=== PATIENT | male | born 1975 | race Caucasian/White ===

== ENCOUNTER 2025-01-30 12:54 | Emergency (ER) | payer OTHER, SELFPAY ==
--- OUTSIDE RECORDS SUMMARY | 2025-01-30 12:57 | XMS_ITS | Data Portability ---
Author Organization [place] - [facility], autoContract - [facility] Address [address] [place] [address] Assessment Encounter Date Assessment Date Assessment LastModified by Organization Details LastModified Time 09/19/2024 09/19/2024 ASSESSMENT: Patient is a good candidate for conservative care and the prognosis is for a favorable outcome that achieves the patients' goals. We discussed etiology, activity modifications, home care, and other treatment options. Initially, it is recommended that the patient receive in-office treatment 1 times per week for 8 weeks at which time a re-evaluation will be performed to determine an appropriate change in plan. Initially, treatment will focus on joint manipulation to restore range of motion and reduce pain. We will slowly progress to therapeutic exercises and activities to improve function, strength, and stability may also be used as warranted. If the patient is not responding as expected, more invasive procedures will be discussed along with a referral. All considerations above were discussed with the patient and questions answered to satisfaction. If the patient should have any additional questions, or should the condition evolve or worsen, the patient should not hesitate to contact our office. ASSESSMENT: Patient is a good candidate for conservative care and the prognosis is for a favorable outcome that achieves the patients' goals. We discussed etiology, activity modifications, home care, and other treatment options. Initially, it is recommended that the patient receive in-office treatment 1 times per week for 8 weeks at which time a re-evaluation will be performed to determine an appropriate change in plan. Initially, treatment will focus on joint manipulation to restore range of motion and reduce pain. We will slowly progress to therapeutic exercises and activities to improve function, strength, and stability may also be used as warranted. If the patient is not responding as expected, more invasive procedures will be discussed along with a referral. All considerations above were discussed with the patient and questions answered to satisfaction. If the patient should have any additional questions, or should the condition evolve or worsen, the patient should not hesitate to contact our office. [email or web address] Not available 09/19/2024 16:30:18 01/14/2025 01/14/2025 ASSESSMENT: Patient is a good candidate for conservative care and the prognosis is for a favorable outcome that achieves the patients' goals. We discussed etiology, activity modifications, home care, and other treatment options. Initially, it is recommended that the patient receive in-office treatment 1 times per week for 8 weeks at which time a re-evaluation will be performed to determine an appropriate change in plan. Initially, treatment will focus on joint manipulation to restore range of motion and reduce pain. We will slowly progress to therapeutic exercises and activities to improve function, strength, and stability may also be used as warranted. If the patient is not responding as expected, more invasive procedures will be discussed along with a referral. All considerations above were discussed with the patient and questions answered to satisfaction. If the patient should have any additional questions, or should the condition evolve or worsen, the patient should not hesitate to contact our office. [email or web address] Not available 01/18/2025 15:46:55 Plan of Treatment Reminders Order Date Submit Date Provider Last Modified By Organization Details Last Modified Time Details Appointments None record ed. Lab None record ed. Referral None record ed. Procedures None record ed. Surgeries None record ed. Imaging None record ed. Medication Orders None record ed. Patient TargetsNo targets recorded. Patient InstructionsNo instructions recorded. Reason for Referral None Reported. Problems Name Problem SNOMED Code Status Onset Date Resolution Date Notes Provider Name and Address Organization Details Recorded Time Neck pain 86833428 Active 2024 Akhil Gill DC [address], [place], [address], [facility] 16:30:13 Cervical segmental dysfunction 247659444 Active 2024 Akhil Gill DC [address], [place], [address], [facility] 16:30:13 Thoracic segmental dysfunction 671104139 Active 2024 Akhil Gill DC [address], [place], [address], [facility] 16:30:13 Lumbar segmental dysfunction 342706502 Active 2024 Akhil Gill MA [address], [place], [address], [facility] 16:30:13 Low back pain 967923607 Active 2024 Akhil Gill MA [address], [place], [place], [address], [facility] 16:30:19 Somatic dysfunction of sacral spine 101862293 Active 2024 Akhil Gill MA [address], [place], [address], [facility] 16:30:19 Lesion of lumbar spine 541527166 Active 2024 Adriano [place], [place] [address], [facility] [place], [address], [facility] 15:46:56 Problem Notes None recorded. Procedures Surgical History Date Name Laterality Status Provider Name and Address Organization Details Recorded Time 79713: Spinal manipulation , 3 to 4 regions completed Adriano Brown MA [address], [place], [address], [facility] 01/18/2025 15:47:00 88060: Spinal manipulation , 3 to 4 regions completed Akhil Gill MA [address], [place], [address], [facility] 09/19/2024 16:34:54 Imaging Results None recorded. Procedure Notes None recorded. Medical Equipment None Reported. Medications Name Sig Start Date Stop Date Status Note LastModified by Organization Details LastModified Time sildenafil 50 mg tablet TAKE ONE TABLET BY MOUTH DAILY NEEDED FOR ERECTILE DYSFUNCTIO N. TAKE 30MIN - 4HRS PRIOR TO SEXUAL ACTIVITY active Not Available Not Available No t Available amlodipine 5 mg tablet TAKE ONE TABLET BY MOUTH ONE TIME DAILY* active Not Available Not Available No t Available Vitals None Recorded Social History None recorded. Functional Status None recorded. Mental Status None recorded. Family History Nothing Reported. Medical History No medical history recorded. Past Encounters Encounter ID Performer Location Encounter Start Date Encounter Closed Date Diagnosis/Indication Diagnosis SNOMED-CT Code Diagnosis ICD10 Code Diagnosis Note [id number] Akhil Zane Gill DC [facility] [address] [place] [address] 09/19/2024 16:06:46 09/19/2024 16:53:13 Cervical segmental dysfunction 968368157 M99.01 Neck pain 69422540 M54.2 Thoracic s egmental dysfunction 859618309 M99.02 Lumbar seg mental dysfunction 605144589 M99.03 Low back pain 227267370 M54.50 Somatic dy sfunction of sacral spine 629804396 M99.04 [id number] Adriano Brown DC [facility] [address] [place] [address] 01/15/2025 10:44:55 01/21/2025 16:34:17 Lesion of lumbar spine 463433992 M99.01 Neck pain 09883150 M54.2 Thoracic s egmental dysfunction 959521705 M99.02 Lumbar seg mental dysfunction 295723080 M99.03 Cervical s egmental dysfunction 917722544 M99.01 Health Concerns Section Related Observation LastModified by Organization Detai ls LastModified Time None Recorded Concern Status LastModified by Organization Details LastModified Time None Recorded Advance Directives Directive None Recorded Payers Insurance Date Sequence Insurance Name Policy Number Policy Harris Covered Member ID Harris Member ID Guarantor Name 09/22/2024 1 [facility] Eamon Rivero [id number] Eamon Rivero 01/21/2025 1 [facility] [facility] [id number] Eamon Rivero [id number] Eamon Rivero Notes Date Note Type Note Provider Name and Address Organization Details Recorded Time 09/19/2024 text/html HPI - Cervical SpineReported bypatient.Location: right Quality:aching Severity:moderate Duration:2 weeks Timing:gradual Alleviating Factors:ice Aggravating Factors:sitting Associated Symptoms:no numbness/tinglingHP I - Lumbar SpineReported bypatient.Location: bilateral; With radiation to knee Quality:aching Severity:not changing Timing:morning Aggravating Factors:standing Alleviating Factors:ice Akhil Gill DC [address], [place], [address], [facility] 09/19/2024 16:35:07 01/14/2025 text/html HPI - Cervical SpineReported bypatient.Location: left Quality:aching Severity:moderate Duration:2 weeks Timing:gradual Alleviating Factors:ice Aggravating Factors:sitting Associated Symptoms:no numbness/tingling Adriano Brown DC [address], [place], [address], [facility] 01/18/2025 15:47:09
--- OUTSIDE RECORDS SUMMARY | 2025-01-30 12:57 | XMS_ITS | Continuity of Care Document ---
Author Organization [facility] Address [address] [place] [address] Assessment Encounter Date Assessment Date Assessment LastModified by Organization Details LastModified Time 01/14/2025 01/14/2025 ASSESSMENT: Patient is a good [...] Address Organization Details Recorded Time Neck pain 93841768 Active 2024 Akhil Gill DC [address], [place], [address], [facility] [place] - [facility] 16:30:13 Cervical segmental dysfunction 902948164 Active 2024 Akhil Degroot Heatherchris SATISH [address], [place], [address], [facility] [place] - [facility] 16:30:13 Thoracic segmental dysfunction 754164923 Active 2024 Akhil Zane RomerochrisSATISH [address], [place], [address], [facility] 16:30:13 Lumbar segmental dysfunction 082863863 Active 2024 Akhil Zane RomerochrisSATISH [address], [place], [address], [facility] 16:30:13 Low back pain 325243051 Active 2024 Akhil Zane Gill DC [address], [place], [address], [facility] 16:30:19 Somatic dysfunction of sacral spine 858735813 Active 2024 Akhil Zane Gill DC [address], [place], [address], [facility] 16:30:19 Lesion of lumbar spine 744295731 Active 2024 Adriano Robleszhane Brown DC [address], [place], [address], [facility] 15:46:56 Problem Notes None recorded. Procedures Surgical History Date Name Laterality Status Provider Name and Address Organization Details Recorded Time 00170: Spinal manipulation , 3 to 4 regions completed Adriano Quintonzhane Brown DC [address], [place], [address], [facility] 01/18/2025 15:47:00 [address]: Spinal manipulation , 3 to 4 regions completed Akhil Gill DC [address], [place], [address], [facility] 09/19/2024 16:34:54 Imaging Results None recorded. Procedure [...] History No medical history recorded. Past Encounters None Reported. Health Concerns Section Related Observation LastModified by Organization Detai ls LastModified Time None Recorded Concern Status LastModified by Organization Details LastModified Time None Recorded Payers Encounter Date Sequence Insurance Name Policy Number Policy Harris Covered Member ID Harris Member ID Guarantor Name 01/14/2025 1 [facility] [id number] Eamon Rivero [id number] Eamon Rivero Notes Date Note Type Note Provider Name and Address Organization Details Recorded Time 01/14/2025 text/html HPI - Cervical SpineReported bypatient.Location: left Quality:aching Severity:moderate Duration:2 weeks Timing:gradual Alleviating Factors:ice Aggravating Factors:sitting Associated Symptoms:no numbness/tingling Scot Quinton Brown DC [address], [place], [address], [facility] 01/18/2025 15:47:09
--- OUTSIDE RECORDS SUMMARY | 2025-01-30 12:57 | XMS_ITS | Clinical Summary ---
Author Organization [employer] Address [address] [place] [address] Care Team Providers Care Family Services Coordinator Name Role Phone Amanda Lord Primary Care Provider [phone] Allergies Active Allergy Reactions Criticality Noted Date Comments Shellfish Derived Hives,Throat Swelling/Closing High 01/23/2017 Medications EPINEPHrine (EpiPen) 0.3 mg/0.3 mL auto-injectorI ndications:She llfish allergy Inject 0.3 mg intramuscular one time if needed for Allergic Reaction. 2 Each 3 Active amLODIPine (NORVASC) 5 mg tabletIndicati ons:HTN (hypertension) Take 1 Tablet (5 mg) by mouth once daily. 90 Tablet 3 4 Active sildenafil citrate (VIAGRA) 50 mg tabletIndicati ons:ED (erectile dysfunction) of organic origin Take 1 Tablet (50 mg) by mouth once daily if needed for Erectile Dysfunction. Take 30 minutes to 4 hours before sexual activity. Max 100mg/24hr. 30 Tablet 11 4 Active LORazepam 1 mg tabletIndicati ons:Anxiety with flying Take 1 Tablet (1 mg) by mouth every 4 hours if needed for Anxiety. 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 (05/31/2016): Fear of flying Immunizations Immunization Administration Dates Next Due Influenza, IIV4 05/31/2016 Td (Age >=7 Years) 12/15/2021,09/13/2004 Tdap 09/20/2011 Family History Medical History Relation Name Comments Aneurysm Father Aorta, caused L E DVT Diabetes type II Father Hypertension Father Heart Disease Maternal Grandfather Cancer-breast Mother Heart Disease Mother Atrial fib Hyperlipidemia Mother Heart Disease Paternal Grandfather Heart failure Sister Relation Name Status Comments Father Alive Maternal Grandfather Mother Alive Paternal Grandfather Sister Alive Social History Tobacco Use Types Packs/Day Years Used Date Smoking Tobacco: Never Smokeless Tobacco: Never Tobacco Cessation:Counseling Given: Not Answered Alcohol Use Standard Drinks/Week Comments Not Currently 0 (1 standard drink = 0.6 oz pur e alcohol) occasional PHQ-2 Answer Date Recorded PHQ-2 TOTAL SCORE 0 06/06/2024 Social Connections Answer Date Recorded Do you often feel lonely or isolated from those around you? 0 06/01/2024 Financial Resource Strain Answer Date R ecorded Difficulty of Paying Living Expenses 3 06/06/2024 Difficulty of Paying Living Expenses Not on file 06/06/2024 Food Insecurity Answer Date Recorded Do you worry your food will run out before you are able to buy more? 1 06/01/2024 Transportation Needs Answer Date Record ed Does lack of transportation keep you from medica l appointments? 1 06/01/2024 Does lack of transportation keep you from work, meetings or getting things that you need? 1 06/01/2024 Housing Stability Answer Date Recorded What is your housing situation today? 1 06/01/2024 Utilities Answer Date Recorded Do you have trouble paying f or utilities (for example, heat, electricity, water, phone)? 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 Not on file Not on file Not on rito e Obstetrics History Last Filed Vital Signs Vital Sign Reading Time Taken Comments Blood Pressure 124/82 06/06/2024 8:07 AM YOUTH AGENT Pulse 74 06/06/2024 8:07 AM YOUTH AGENT Temperature 36.5 C (97.7 F) 06/30/2022 11:04 AM YOUTH AGENT Respiratory Rate 16 06/30/2022 11:25 AM YOUTH AGENT Oxygen Saturation 99% 06/06/2024 8:07 AM YOUTH AGENT Inhaled Oxygen Concentration - - Weight 107.3 kg (236 lb 8 oz) 06/06/2024 8:07 AM YOUTH AGENT Height 173 cm (5' 8.11) 06/06/2024 8:07 AM YOUTH AGENT Body Mass Index 35.84 06/06/2024 8:07 AM YOUTH AGENT Plan of Treatment Health Maintenance Due Date Last Done Comments HIV for age 15-65 1988 Hepatitis C screening for ag e 18-79 12/18/1991 Hepatitis B series for 19+ ( 1 of 3 - 19+ 3-dose series) 1992 Pneumococcal series for age 50+ (1 of 1 - PCV) 12/18/2023 Zoster (shingles) series for age 50+ (1 of 2) 12/18/2023 COVID-19 vaccine series (3 - 2023- season) 2024 11/12/2020, 10/22/2020 Influenza Vaccine (#1) 2025 05/31/2016 BMI (ht and wt on same day) for age 18+ 06/06/2025 06/06/2024, 03/15/2023, 06/26/2022, Additional history exists Depression screening for age 12+ 06/06/2025 06/06/2024, 03/15/2023, 12/15/2021, Additional history exists Lipids for age 45-75 06/06/2029 06/06/2024, 12/15/2021, 01/09/2018, Additional history exists Tetanus booster 12/16/2031 12/15/2021, 03/0 01/2012, 09/13/2004 Colonoscopy through age 75 06/30/2032 06/30/2022 Procedures Procedure Name Priority Date/Time Associated Diagnosis Comments LIPID PANEL W REFLEX MEASURED LDL Routine 06/06/2024 8:48 AM YOUTH AGENT Screening for lipid disorders COLONOSCOPY 06/30/2022 10:24 AM YOUTH AGENT from Last 3 Months or Most Recently Relevant to Health Maintenance Results * (ABNORMAL) LIPID PANEL W REFLEX MEASURED LDL (06/06/2024 8:48 AM YOUTH AGENT) CHOLESTEROL, TOTAL 220(H) <200 mg/dL [facility] HDL CHOLESTEROL 45 > OR = 40 mg/dL [facility] TRIGLYCERIDES 115 <150 mg/dL [facility] LDL-CHOLESTEROL 152(H) mg/dL (calc) [facility] Comment: Reference range: <100 Desirable range <100 mg/dL for primary prevention; <70 mg/dL for patients with CHD or diabetic patients with > or = 2 CHD risk factors. LDL-C is now calculated using the Evan calculation, which is a validated novel method providing better accuracy than the Friedewald equation in the estimation of LDL-C. Los SS et al. DINO. 2013;310(19): 5991-1853 (http://education.[employer]faq/HIN623) CHOL/HDLC RATIO 4.9 <5.0 (calc) [facility] NON HDL CHOLESTEROL 175(H) <130 mg/dL (calc) [facility] Comment: For patients with diabetes plus 1 major ASCVD risk factor, treating to a non-HDL-C goal of <100 mg/dL (LDL-C of <70 mg/dL) is considered a therapeutic option. Blood BLOOD SPECIMEN / Unknown 06/06/2024 8:48 AM YOUTH AGENT 06/06/2024 8:48 AM YOUTH AGENT us Amanda Lord DO CHEMISTRY Final Res ult [facility] [address] [place] [address], [facility] [address] [place] [address] * COLONOSCOPY (06/30/2022 10:24 AM YOUTH AGENT) 06/30/2022 10:2 4 AM YOUTH AGENT Narrative Transcriptions Tisha Dye MD - 06/30/2022 11:04 AM CST Patient Name: Eamon Rivero Procedure Date: 06/30/2022 Gender: Male Date of : 1975 Admit Type: Ambulatory Procedure: Colonoscopy Proceduralist: Tisha Dye MD Referring MD: Amanda Lord Indications/Pre-Op Diagnosis: Screening for malignant neoplasm in [facility] [address], This is the patient's first colonoscopy Medications: Midazolam 6 mg IV, Fentanyl 100 microgramsIV, Oxygen per cannula Procedure Description: The procedure, indications, potential complications, (bleeding, perforation, infection, adverse medication reaction, missed lesionsor polyps) and alternatives available were explained to the patient, who appeared to understand and indicated this. Opportunity for questionswas provided and informed consent obtained. The endoscope [id number] was introduced through the anus and advanced to the terminal ileum. The colonoscopy was performed without difficulty. The patient tolerated the procedure well. The quality ofthe bowel preparation was evaluated using the BBPS (Hines BowelPreparation Scale) with scores of: Right Colon = 2 (minor amount of residual staining, small fragments of stool and/or opaque liquid, but mucosaseen well), Transverse Colon = 3 (entire mucosa seen well with no residual staining, small fragments of stool or opaque liquid) and Left Colon =3 (entire mucosa seen well with no residual staining, small fragmentsof stool or opaque liquid). The total BBPS score equals 8. The bowel preparation used was GoLYTELY via split dose instruction. Scope withdrawal time was 13 minutes. The total duration of the procedurewas 21 minutes. The terminal ileum, ileocecal valve, appendiceal orifice, and rectum were photographed. The scope was advanced using CO2 insufflation. Complications: No immediate complications. Estimated Blood Loss & Specimen: Estimated blood loss: none. Specimen collected: Yes and sent to Laboratory Findings: A diminutive polyp was found in the transverse colon. The polyp was sessile. The polyp was removed with a cold biopsy forceps. Resectionand retrieval were complete. A 3 mm polyp was found in the descending colon. The polyp wassessile. The polyp was removed with a cold snare. Resection was complete, butthe polyp tissue was only partially retrieved. A diminutive polyp was found in the sigmoid colon. The polyp was sessile. The polyp was removed with a cold snare. Resection and retrieval were complete. The exam was otherwise without abnormality. The terminal ileum appeared normal. The retroflexed view of the distal rectum and anal verge was normaland showed no anal or rectal abnormalities. Impressions/Post-Op Diagnosis: - One diminutive polyp in the transverse colon, removed with a cold biopsy forceps. Resected and retrieved. - One 3 mm polyp in the descending colon, removed with a cold snare. Complete resection. Partial retrieval. - One diminutive polyp in the sigmoid colon, removed with a coldsnare. Resected and retrieved. - The examination was otherwise normal. Small lipoma ascendingcolon. - The examined portion of the ileum was normal. - The distal rectum and anal verge are normal on retroflexion view. Recommendation: - Await pathology results. - Patient has a contact number available for emergencies. The signsand symptoms of potential delayed complications were discussed with the patient. Return to normal activities tomorrow. Written discharge instructions were provided to the patient. Moderate Sedation: Moderate (conscious) sedation was administered by the endoscopy nurse and supervised by the endoscopist. The following parameters were monitored: oxygen saturation, heart rate, respiratory rate, adequacyof pulmonary ventilation and reponse to care. Please refer to the patient's medical record flowsheets for moderate sedation details. Tisha Dye MD 06/30/2022 11:03:57 AM This report has been signed electronically. Note Initiated On: 06/30/2022 10:24 AM Scope Withdrawal Time 0 hours 13 minutes 52 seconds Total Procedure Duration Time 0 hours 21 minutes 23 seconds us Tisha Dye MD PROCEDURE ORD Fi nal Result from Last 3 Months or Most Recently Relevant to Health Maintenance Insurance [facility] [place] [address] Advance Directives * Full Code (Latest Code Status on File) Date Activated Date Inactivated Comments 06/30/2022 9:35 AM 06/30/2022 1:39 PM Question Answer Comments Code Status Discussion: Discussed Care Teams Family Services Coordinator Relationship Specialty Start Date End Date Amanda Lord DO [address] [place] [address] PCP - General Family Practice 01/26/22
[2025-01-30 13:12] VITALS: BP 145/94; PULSE 92; RESP 20; TEMP 37; O2SAT 98; BMI 35.3
--- NOTE | 2025-01-30 13:16 | ED.GENADULT ---
HPI - General Adult General Chief complaint: Shortness of Breath/Dyspnea Stated complaint: shortness of breath/ Shakey Time Seen by Provider: 01/30/25 13:14 History of Present Illness HPI narrative: Arrives with complaints of shaking, SOB, and chest pain that started about one hour ago. Reports history of panic attacks, anxious during triage. Denies pain at this time, alert and oriented, VSS, ABCs intact. 49-year-old man presenting to the emergency department. Prone on half prior to this conversation began to feel 10 started shaking. Some chest pressure. [place] like he has needed to belch. A little short of breath breath. Concern of potential cardiac problem. More lately has noted blood pressure lability. Had also noted recently, yesterday that heart rate had been intermittently going up. Does have history of panic attacks which had been alleviated by treatment with magnesium supplementation and he thinks fish oil before bed. It has been quite some time since had a panic attack. Last night noted that when he laid on his back unusually chest his left arm went numb. Sleeps on either side and when lying back both arms can go numb sometimes. Exercises regularly without difficulty. Related Data Home Medications ?Medication ?Instructions ?Recorded ?Confirmed amlodipine 5 mg tablet 5 mg PO DAILY 01/30/25 01/30/25 sildenafil 50 mg tablet 50 mg PO DAILY PRN intercourse 01/30/25 01/30/25 Allergies Allergy/AdvReac Type Severity Reaction Status Date / Time shellfish derived Allergy Intermediate Verified 01/30/25 13:10 Review of Systems Status of ROS: Reports: 6 or more systems reviewed and unremarkable except as noted in History and below PFSH PFSH Social History Smoking Status: Never smoker Non-prescribed substance use: denies use Exam Narrative: Exam Narrative: Pleasant. Mildly tremulous. Mildly labored breathing. Does appear anxious. Skin is warm and dry. Lungs are clear. Extremities are well perfused. No edema. Abdomen is overweight weight soft nontender. Const: Vital Signs, click to edit/add: Vital Signs - 24 hr 01/30/25 13:12 01/30/25 14:00 01/30/25 14:19 Temperature 98.6 F Pulse Rate 82 78 Pulse Rate [Pulse Oximeter] 92 Respiratory Rate 20 14 12 Blood Pressure 138/83 Blood Pressure [Ri ght Upper Arm] 145/94 H Pulse Oximetry 98 97 95 Oxygen Delivery Me thod Room Air 01/30/25 15:00 Temperature Pulse Rate 76 Pulse Rate [Pulse Oximeter] Respiratory Rate 14 Blood Pressure 130/90 H Blood Pressure [Ri ght Upper Arm] Pulse Oximetry 95 Oxygen Delivery Me thod Course Vital Signs Vital signs: Initial Vital Signs Temperature 98.6 F 01/30/25 13:12 Temperature Source Temporal Artery Scan 01/30/25 13:12 Pulse Rate 92 01/30/25 13:12 Respiratory Rate 20 01/30/25 13:12 Blood Pressure 145/94 H 01/30/25 13:12 Blood Pressure Mean 111 H 01/30/25 13:12 Pulse Oximetry 98 01/30/25 13:12 Oxygen Delivery Method Room Air 01/30/25 13:12 Vital Signs Temperature 98.6 F 01/30/25 13:12 Pulse Rate 92 01/30/25 13:12 Respiratory Rate 20 01/30/25 13:12 Blood Pressure 145/94 H 01/30/25 13:12 Pulse Oximetry 98 01/30/25 13:12 Oxygen Delivery Method Room Air 01/30/25 13:12 Temperature 98.6 F 01/30/25 13:12 Pulse Rate 76 01/30/25 15:00 Respiratory Rate 14 01/30/25 15:00 Blood Pressure 130/90 H 01/30/25 15:00 Pulse Oximetry 95 01/30/25 15:00 Oxygen Delivery Method Room Air 01/30/25 13:12 Medical Decision Making MDM Narrative Medical decision making narrative: Certainly anxiety is contributing to symptoms here today. Will monitor for arrhythmia. Will check for any indication of cardiac injury. This belching might be a concerning sign in this regard. Could be some reflux symptoms. Does not appear to have respiratory symptoms otherwise. Vascular disruption? Labs are reassuring. Over time in the emergency department was monitored on satellite project site monitor without event. Does reflect on potential stress in his life. On multiple reassessments symptoms faded and then ultimately gone completely. See patient discharge plan for further discussion I am happy you are feeling better. At this point I think you can continue with your usual level of activity. Be sure to get quality and regular sleep. Continue with a little heart pumping exercise daily. If these runs of repeat elevated heart rates are continuing, I would contact your primary, or as you said chemical machine tender, to consider further evaluation. Of course return for marked increase in persistent chest pain, worsening shortness of breath, associated nausea. Lab Data Lab results reviewed: Yes I reviewed the patient's lab results Labs: Lab Results 01/30/25 Range/Units 14:15 WBC 7.91 (4.50-11.00) K/uL RBC 5.32 (4.30-5.90) m/uL Hgb 14.8 (13.5-17.5) gm/dL Hct 43.3 (37.0-53.0) % MCV 81 (80-100) fL MCH 28 (26-34) pg MCHC 34 (32-36) gm/dL RDW Coeff of Christo 11.8 (11.5-15.5) % Plt Count 247 (140-440) K/uL Neut % (Auto) 55.4 (42.0-72.0) % Lymph % (Auto) 28.8 (20-44) % [place] % (Auto) 10.7 (0.0-11.0) % Eos % (Auto) 3.2 (0.0-7.0) % Baso % (Auto) 1.0 (0.0-3.0) % Neut # (Auto) 4.38 (1.7-7.0) K/uL Lymph # (Auto) 2.28 (0.90-2.90) K/uL [place] # (Auto) 0.80 (0.00-0.90) K/UL Eos # (Auto) 0.25 (0.00-0.50) K/uL Baso # (Auto) 0.08 (0.00-0.30) K/uL Abs Immat Gran (auto) 0.07 (0.00-0.30) K/uL Imm/Tot Granulo (auto) 0.9 % Sodium 139 (135-149) mmol/L Potassium 3.9 (3.6-5.1) mmol/L Chloride 103 (96-114) mmol/L Carbon Dioxide 27 (20-32) mmol/L Anion Gap 9 (7-15) mEq/L BUN 19 (7-30) mg/dL Creatinine 1.2 (0.5-1.5) mg/dL Estimated Creat Clear 70.46 Estimated GFR 73 ml/min Glucose 108 (60-115) mg/dL Calcium 9.2 (8.4-10.6) mg/dL Troponin I < 0.01 (0.01-0.04) ng/mL NT-Pro-B Natriuret Pep 67 (See Note) pg/mL POC Troponin I 0.00 L (0.01-0.04) ng/ml ECG Data Attestation: I personally reviewed and interpreted this ECG as follows: (Normal sinus rhythm. QTC of 483. Rate of 86. No apparent ischemic changes. ) Discharge Plan Discharge Clinical Impression: Anxiety, Chest pressure Patient Disposition: Home, Self-Care Condition: Improved Additional Instructions: I am happy you are feeling better. At this point I think you can continue with your usual level of activity. Be sure to get quality and regular sleep. Continue with a little heart pumping exercise daily. If these runs of repeat elevated heart rates are continuing, I would contact your primary, or as you said chemical machine tender, to consider further evaluation. Of course return for marked increase in persistent chest pain, worsening shortness of breath, associated nausea. Prescriptions: No Action sildenafil 50 mg tablet 50 mg PO DAILY PRN (Reason: intercourse) amlodipine 5 mg tablet 5 mg PO DAILY Follow Up/Referrals: Provider,Not a Local [Primary Care Provider, Family Practice] Stand Alone Forms: MyHealth Info Instructions
[2025-01-30 14:00] VITALS: PULSE 82; RESP 14; O2SAT 97
[2025-01-30 14:19] VITALS: BP 138/83; PULSE 78; RESP 12; O2SAT 95
[2025-01-30 14:31] LABS: Hematocrit 43.3 % (37.0-53.0); Hemoglobin* 14.8 gm/dL (13.5-17.5); Immature Granulocytes Abs Auto 0.07 K/uL (0.00-0.30); Immature Granulocytes Pct Auto 0.9 %; Lymphocytes Absolute Auto 2.28 K/uL (0.90-2.90); Mean Corpuscular HGB Conc 34 gm/dL (32-36); Mean Corpuscular Hemoglobin 28 pg (26-34); Mean Corpuscular Volume 81 fL (80-100); RDW Coefficient of Variation % 11.8 % (11.5-15.5); Red Blood Count 5.32 m/uL (4.30-5.90); White Blood Count* 7.91 K/uL (4.50-11.00)
[2025-01-30 14:40] LABS: Chloride* 103 mmol/L (96-114); Potassium* 3.9 mmol/L (3.6-5.1); Sodium* 139 mmol/L (135-149)
[2025-01-30 14:43] LABS: Anion Gap 9 mEq/L (7-15); Blood Urea Nitrogen* 19 mg/dL (7-30); Calcium* 9.2 mg/dL (8.4-10.6); Carbon Dioxide* 27 mmol/L (20-32); Creatinine* 1.2 mg/dL (0.5-1.5); Est. Creatinine Clearance* 70.46; Estimated Glomerular Filt Rate 73 ml/min; Glucose* 108 mg/dL (60-115); Slide Review Reflex No
[2025-01-30 14:53] LABS: NT Pro B Type NatriureticPept* 67 pg/mL (See Note)
[2025-01-30 15:00] VITALS: BP 130/90; PULSE 76; RESP 14; O2SAT 95
[2025-02-02 10:26] LABS: Troponin, Point-of-Care* 0.00 ng/ml (0.01-0.04)
== END 2025-01-30 15:43 | disposition home or self-care (01) ==
PROVIDERS: Emergency Provider Family Medicine
DX: R07.89 Other chest pain (principal); F41.9 Anxiety disorder, unspecified
CPT/HCPCS: 36415; 80048; 83880; 84484; 85025; 93005; 99284